=== PATIENT | female | born 1995 | race Caucasian/White ===

== ENCOUNTER 2018-07-22 16:48 | Emergency (ER) | payer MEDICARE, MEDICAID ==
[~2018-07-22] VITALS: Ht 157.5 cm; Wt 62.6 kg
[~2018-07-22 16:48] MED LIST: CALC667T5 PO; LABE100T5 PO; NIFE10CA2 PO
[2018-07-22 19:15] LABS: BASOPHILS # (AUTO) 0.2 X10'3 (0-0.2); BASOPHILS % (AUTO) 1.8 % (0-1); EOSINOPHILS # (AUTO) 0.5 X10'3 (0-0.9); EOSINOPHILS % (AUTO) 5.7 % (0-6); HEMATOCRIT 38.7 % (35.0-45.0); HEMOGLOBIN 12.8 g/dl (12.0-16.0); LYMPHOCYTES # (AUTO) 1.5 X10'3 (1.1-4.8); LYMPHOCYTES % (AUTO) 17.9 % (21-51); MEAN CORPUSCULAR HEMOGLOBIN 31.6 PG (27.0-31.0); MEAN CORPUSCULAR VOLUME 95.6 FL (78-98); MEAN PLATELET VOLUME 8.3 FL (7.4-10.4); MONOCYTES # (AUTO) 0.6 X10'3 (0-0.9); MONOCYTES % (AUTO) 6.9 % (2-12); NEUTROPHILS # (AUTO) 5.7 X10'3 (1.8-7.7); NEUTROPHILS % (AUTO) 67.7 % (42-75); PLATELET COUNT 304 X10'3 (140-440); RED BLOOD COUNT 4.05 X10'6 (4.20-5.60); RED CELL DISTRIBUTION WIDTH 14.9 % (11.5-14.5); WHITE BLOOD COUNT 8.4 X10'3 (4.5-11.0)
[2018-07-22 19:23] LABS: ALANINE AMINOTRANSFERASE 18 U/L (12-78); ALBUMIN 4.3 G/DL (3.4-5.0); ALKALINE PHOSPHATASE 79 IU/L (46-116); ANION GAP 7 (8-16); ASPARTATE AMINO TRANSFERASE 14 U/L (10-37); BILIRUBIN,TOTAL 0.7 MG/DL (0.1-1.0); BLOOD UREA NITROGEN 16 MG/DL (7-18); BUN/CREATININE RATIO 3.1 (6.6-38.0); CALCIUM 9.5 MG/DL (8.5-10.1); CHLORIDE 98 MMOL/L (99-107); CREATININE 5.08 MG/DL (0.40-0.90); GLUCOSE 96 MG/DL (70-104); POTASSIUM 4.3 MMOL/L (3.5-5.1); SODIUM 141 MMOL/L (135-145); TOTAL CARBON DIOXIDE 35.8 MMOL/L (24-32); TOTAL PROTEIN 8.6 G/DL (6.4-8.2); eGFR 10 ML/MIN
[2018-07-22 19:27] LABS: INR 1.1 INR; PROTHROMBIN TIME 10.7 SECONDS (9.0-12.0)
[2018-07-22 19:38] LABS: CLARITY,URINE CLEAR (Clear); COLOR,URINE YELLOW (Yellow); GLUCOSE, URINE 100 mg/dl (Neg); KETONES,URINE NEGATIVE (Neg); LEUKOCYTE ESTERASE ,URINE NEGATIVE (Neg); NITRITES, URINE NEGATIVE (Neg); OCCULT BLOOD,URINE TRACE-INTACT (Neg); PH,URINE >=9.0 (4.8-8.0); PROTEIN,URINE >=300 mg/dl (Neg); UROBILINOGEN,URINE 0.2 E.U/dL (0.2-1.0)
[2018-07-22 19:39] LABS: URINE HCG NEGATIVE (NEG)
[2018-07-22 19:40] LABS: UA COLLECTION TYPE CLN CATCH MIDSTREAM
[2018-07-22 19:54] VITALS: BP 138/93
[2018-07-22 20:01] LABS: BACTERIA,URINE FEW /HPF (Neg); RBC,URINE 0-2 /HPF (0-2); SQUAMOUS EPITHELIAL CELL,UR MODERATE /LPF (FEW); WBC,URINE 0-4 /HPF (0-4)
== END 2018-07-22 19:55 | disposition home or self-care (01) ==
LOC: ER 16:48
DX: R19.7 Diarrhea, unspecified (principal); R11.2 Nausea with vomiting, unspecified; I12.0 Hypertensive chronic kidney disease with stage 5 chronic kidney disease or end stage renal disease; N18.6 End stage renal disease; Z99.2 Dependence on renal dialysis; Z98.890 Other specified postprocedural states; Z79.899 Other long term (current) drug therapy
CPT/HCPCS: 36415; 80053; 81001; 81025; 85025; 85610; 99283

== ENCOUNTER 2019-11-04 21:46 | Emergency (ER) | payer MEDICARE, MEDICAID ==
[~2019-11-04] VITALS: Ht 157.5 cm; Wt 65.0 kg
[~2019-11-04 21:46] MED LIST changes: -CALC667T5 PO; +CALC667T6 PO
[2019-11-04 22:10] VITALS: BP 183/112
--- NOTE | 2019-11-04 22:20 | NUR ---
Dr Fuller gave verbal order for pt to take her night time dose of labetolol 300mg PO. Pt aware she needs to have BP recheck in 45 to 60 minutes
--- NOTE | 2019-11-04 23:30 | NUR ---
Dr Fuller in triage to reevaluate pt
== END 2019-11-04 23:58 | disposition home or self-care (01) ==
LOC: ER 21:47
DX: I12.0 Hypertensive chronic kidney disease with stage 5 chronic kidney disease or end stage renal disease (principal); N18.6 End stage renal disease; Z98.890 Other specified postprocedural states; Z79.899 Other long term (current) drug therapy; Z99.2 Dependence on renal dialysis
CPT/HCPCS: 93005; 99283

== ENCOUNTER 2019-11-16 10:13 | Emergency (ER) | payer MEDICARE, MEDICAID ==
[~2019-11-16] VITALS: Ht 157.5 cm; Wt 65.0 kg
--- NOTE | 2019-11-16 10:42 | NUR ---
RN attempted PIV insertion x2, unsuccessful. Will defer until labs resulted, EDMD aware.
[2019-11-16 11:02] LABS: BASOPHILS # (AUTO) 0.1 X10'3 (0-0.2); BASOPHILS % (AUTO) 0.9 % (0-1); EOSINOPHILS # (AUTO) 0.7 X10'3 (0-0.9); EOSINOPHILS % (AUTO) 9.6 % (0-6); HEMATOCRIT 35.4 % (35.0-45.0); HEMOGLOBIN 11.9 g/dl (12.0-16.0); LYMPHOCYTES # (AUTO) 1.4 X10'3 (1.1-4.8); LYMPHOCYTES % (AUTO) 19.1 % (21-51); MEAN CORPUSCULAR HEMOGLOBIN 33.2 PG (27.0-31.0); MEAN CORPUSCULAR HGB CONC 33.5 g/dL (33.0-36.5); MEAN PLATELET VOLUME 9.3 FL (7.4-10.4); MONOCYTES # (AUTO) 0.6 X10'3 (0-0.9); MONOCYTES % (AUTO) 7.5 % (2-12); NEUTROPHILS # (AUTO) 4.6 X10'3 (1.8-7.7); NEUTROPHILS % (AUTO) 62.9 % (42-75); PLATELET COUNT 205 X10'3 (140-440); RED BLOOD COUNT 3.58 X10'6 (4.20-5.60); RED CELL DISTRIBUTION WIDTH 17.3 % (11.5-14.5); WHITE BLOOD COUNT 7.4 X10'3 (4.5-11.0)
[2019-11-16 11:11] LABS: PARTIAL THROMBOPLASTIN TIME 24 SECONDS (22-32)
[2019-11-16 11:14] LABS: ALANINE AMINOTRANSFERASE 14 U/L (12-78); ALBUMIN 3.9 G/DL (3.4-5.0); ALBUMIN/GLOBULIN RATIO 1.2 (1.1-1.5); ALKALINE PHOSPHATASE 61 IU/L (46-116); ANION GAP 11 (8-16); ASPARTATE AMINO TRANSFERASE 13 U/L (10-37); BILIRUBIN,TOTAL 0.5 MG/DL (0.1-1.0); BLOOD UREA NITROGEN 52 MG/DL (7-18); BUN/CREATININE RATIO 4.5 (6.6-38.0); CALCIUM 9.7 MG/DL (8.5-10.1); CHLORIDE 100 MMOL/L (99-107); CREATININE 11.51 MG/DL (0.40-0.90); GLUCOSE 105 MG/DL (70-104); POTASSIUM 5.5 MMOL/L (3.5-5.1); SODIUM 140 MMOL/L (135-145); TOTAL CARBON DIOXIDE 29.5 MMOL/L (24-32); TOTAL PROTEIN 7.2 G/DL (6.4-8.2); eGFR 4 ML/MIN
[2019-11-16] MEDS ORDERED: iohexol 350MG/ML 100ml bottle IV ONE (12:00)
[2019-11-16] MEDS ORDERED: CLON0.2T PO (12:27)
[2019-11-16] MEDS ORDERED: LABE300T2 PO (12:30)
[2019-11-16 13:51] VITALS: BP 204/114
== END 2019-11-16 13:49 | disposition home or self-care (01) ==
LOC: ER 10:14
DX: R07.89 Other chest pain (principal); R06.02 Shortness of breath; I12.0 Hypertensive chronic kidney disease with stage 5 chronic kidney disease or end stage renal disease; N18.6 End stage renal disease; Z99.2 Dependence on renal dialysis; Z98.890 Other specified postprocedural states; Z79.899 Other long term (current) drug therapy
CPT/HCPCS: 36415; 71045; 71275; 76937; 80053; 84484; 85025; 85379; 85610; 85730; 93005; 99285; Q9967

== ENCOUNTER 2019-11-17 18:24 | Emergency (ER) | payer MEDICARE, MEDICAID ==
[~2019-11-17] VITALS: Ht 157.5 cm; Wt 65.0 kg
[~2019-11-17 18:24] MED LIST changes: +CLON0.2T PO; -LABE100T5 PO; +LABE300T2 PO; -NIFE10CA2 PO
[2019-11-17 20:36] LABS: BASOPHILS # (AUTO) 0.1 X10'3 (0-0.2); BASOPHILS % (AUTO) 1.2 % (0-1); EOSINOPHILS # (AUTO) 0.8 X10'3 (0-0.9); EOSINOPHILS % (AUTO) 11.9 % (0-6); HEMATOCRIT 38.6 % (35.0-45.0); LYMPHOCYTES # (AUTO) 1.9 X10'3 (1.1-4.8); LYMPHOCYTES % (AUTO) 27.1 % (21-51); MEAN CORPUSCULAR HEMOGLOBIN 33.6 PG (27.0-31.0); MEAN CORPUSCULAR HGB CONC 33.7 g/dL (33.0-36.5); MEAN CORPUSCULAR VOLUME 99.8 FL (78-98); MEAN PLATELET VOLUME 8.9 FL (7.4-10.4); MONOCYTES # (AUTO) 0.7 X10'3 (0-0.9); MONOCYTES % (AUTO) 9.9 % (2-12); NEUTROPHILS # (AUTO) 3.4 X10'3 (1.8-7.7); NEUTROPHILS % (AUTO) 49.9 % (42-75); PLATELET COUNT 248 X10'3 (140-440); RED BLOOD COUNT 3.87 X10'6 (4.20-5.60); RED CELL DISTRIBUTION WIDTH 17.5 % (11.5-14.5); WHITE BLOOD COUNT 6.9 X10'3 (4.5-11.0)
[2019-11-17] MEDS ORDERED: labetalol 100mg tablet PO STA (20:48)
[2019-11-17 20:52] LABS: ALANINE AMINOTRANSFERASE 20 U/L (12-78); ALBUMIN 4.3 G/DL (3.4-5.0); ALBUMIN/GLOBULIN RATIO 1.2 (1.1-1.5); ALKALINE PHOSPHATASE 68 IU/L (46-116); ANION GAP 2 (8-16); ASPARTATE AMINO TRANSFERASE 17 U/L (10-37); BILIRUBIN,TOTAL 0.6 MG/DL (0.1-1.0); BLOOD UREA NITROGEN 32 MG/DL (7-18); BUN/CREATININE RATIO 4.2 (6.6-38.0); CALCIUM 9.7 MG/DL (8.5-10.1); CHLORIDE 97 MMOL/L (99-107); CREATININE 7.62 MG/DL (0.40-0.90); GLUCOSE 105 MG/DL (70-104); MAGNESIUM 2.4 MG/DL (1.5-2.4); POTASSIUM 5.8 MMOL/L (3.5-5.1); SODIUM 137 MMOL/L (135-145); TOTAL CARBON DIOXIDE 37.6 MMOL/L (24-32); eGFR 6 ML/MIN
[2019-11-17] MEDS ORDERED: cloNIDine 0.1 mg tablet PO ONE (22:30)
[2019-11-17 23:32] VITALS: BP 195/117
== END 2019-11-17 23:35 | disposition home or self-care (01) ==
LOC: ER 18:25
DX: I12.0 Hypertensive chronic kidney disease with stage 5 chronic kidney disease or end stage renal disease (principal); N18.6 End stage renal disease; Z99.2 Dependence on renal dialysis; Z98.890 Other specified postprocedural states; Z79.899 Other long term (current) drug therapy
CPT/HCPCS: 36415; 80053; 83735; 85025; 93005; 99283; 99284

== ENCOUNTER 2021-12-12 14:22 | Outpatient (CLI) | payer MEDICARE, MEDICAID ==
[2021-12-12 16:25] LABS: HIV ANTIBODY 1&2 RAPID NON-REACTIVE (Neg)
[2021-12-14 12:48] LABS: EBV AB VCA, IGM <36.0 U/mL (0.0-35.9); EBV NUCLEAR ANTIGEN AB, IGG >600.0 U/mL (0.0-17.9)
[2021-12-14 18:15] LABS: HBSAG SCREEN Negative (Negative); HEP B CORE AB, TOT Negative (Negative); HEPATITIS C ANTIBODY <0.1 s/co ratio (0.0-0.9)
[2021-12-16 09:24] LABS: CYTOMEGALOVIRUS AB, IGG <0.60 U/mL (0.00-0.59)
== END 2021-12-12 23:59 | disposition home or self-care (01) ==
LOC: LAB 14:22
PROVIDERS: ATTEND Internal Medicine
DX: N18.6 End stage renal disease (principal); R93.5 Abnormal findings on diagnostic imaging of other abdominal regions, including retroperitoneum; Z03.89 Encounter for observation for other suspected diseases and conditions ruled out
CPT/HCPCS: 36415; 86480; 86592; 86644; 86663; 86664; 86665; 86703; 86704; 86706; 86803; 86900; 86901; 87340

== ENCOUNTER 2024-04-13 16:12 | Outpatient (CLI) | payer MEDICARE, MEDICAID ==
[~2024-04-13 16:12] MED LIST changes: -LABE300T2 PO; +LABE300T4 PO
== END 2024-04-13 23:59 | disposition home or self-care (01) ==
LOC: RAD 16:12
PROVIDERS: ATTEND Obstetrics & Gynecology
DX: Z34.91 Encounter for supervision of normal pregnancy, unspecified, first trimester (principal); Z3A.09 9 weeks gestation of pregnancy
CPT/HCPCS: 76801

== ENCOUNTER 2025-05-26 07:13 | Day surgery (SDC) | payer MEDICARE, MEDICAID ==
[~2025-05-26] VITALS: Ht 157.5 cm; Wt 79.4 kg
[~2025-05-26 07:13] MED LIST changes: +AZAT100T2 PO; -CALC667T6 PO; -CLON0.2T PO; +DOCUMENT DATE & TIME OF BETA-BLOCKER PO ONE; +LABE100T8 PO; -LABE300T4 PO; +MAGN400C PO; +METH1TAB32 PO; +MIDAZolam 1 MG/ML 5ML VIAL ONE; +OMEP20CA16 PO; +PRED2.5T4 PO; +TACR1CAP PO; +fentaNYL/PF 50MCG/1 ML 2ML syringe ONE; +flumazenil 0.1 mg/ml inj. 10mL vial IV ONE
[2025-05-26] MEDS: ringers solution, lacted 1,000 ML IV SCH (07:55)
[2025-05-26 08:40] VITALS: BP 132/89; PULSE 97; RESP 16; TEMP 98.3; O2SAT 97
[2025-05-26 08:42] VITALS: RESP 16; O2SAT 97
[2025-05-26 10:28] LABS: URINE HCG POSITIVE (NEG)
== END 2025-05-26 13:00 | disposition home or self-care (01) ==
LOC: GI LAB 07:13
PROVIDERS: ATTEND Internal Medicine Gastroenterology
DX: R10.9 Unspecified abdominal pain (principal); Z53.8 Procedure and treatment not carried out for other reasons
CPT/HCPCS: 81025; 82948; A4620; J7120; J2250; J2312; J3010; J3490

== ENCOUNTER 2025-06-28 09:51 | Day surgery (SDC) | payer MEDICARE, MEDICAID ==
[~2025-06-28] VITALS: Ht 157.5 cm; Wt 79.4 kg
[~2025-06-28 09:51] MED LIST changes: +CETI10TA19 PO; -DOCUMENT DATE & TIME OF BETA-BLOCKER PO ONE; -METH1TAB32 PO; +METH1TAB69 PO; -MIDAZolam 1 MG/ML 5ML VIAL ONE; -fentaNYL/PF 50MCG/1 ML 2ML syringe ONE; -flumazenil 0.1 mg/ml inj. 10mL vial IV ONE
[2025-06-28 10:00] VITALS: BP 134/86; PULSE 78; RESP 16; TEMP 97.2; O2SAT 99
[2025-06-28] MEDS: normal saline 1000ml 1,000 ML IV SCH (10:28)
[2025-06-28 11:43] VITALS: BP 144/91; PULSE 93; RESP 16; O2SAT 95
[2025-06-28 11:50] VITALS: BP 145/90; PULSE 78; RESP 19; O2SAT 97
[2025-06-28 12:00] VITALS: BP 154/90; PULSE 78; RESP 17; O2SAT 97
[2025-06-28 12:10] VITALS: BP 137/89; PULSE 78; RESP 16; O2SAT 97
== END 2025-06-28 12:23 | disposition home or self-care (01) ==
LOC: GI LAB 09:51
PROVIDERS: ATTEND Internal Medicine Gastroenterology
DX: K30 Functional dyspepsia (principal); K29.50 Unspecified chronic gastritis without bleeding; K27.9 Peptic ulcer, site unspecified, unspecified as acute or chronic, without hemorrhage or perforation; I12.0 Hypertensive chronic kidney disease with stage 5 chronic kidney disease or end stage renal disease; N18.6 End stage renal disease; Z94.0 Kidney transplant status; Z86.15 Personal history of latent tuberculosis infection; Z98.890 Other specified postprocedural states; Z83.3 Family history of diabetes mellitus; Z82.49 Family history of ischemic heart disease and other diseases of the circulatory system
CPT/HCPCS: 43239; 88305; 88342; A4620; J7030; J7040; J7120; Z7512; Z7610